=== PATIENT | male | born 1930 | race Caucasian/White ===

== ENCOUNTER 2017-10-05 19:05 | Inpatient (IN) | payer MEDICARE, OTHER ==
[~2017-10-05] VITALS: Ht 180.3 cm; Wt 70.3 kg
--- NOTE | ~2017-10-05 | OP ---
PATIENT NAME: AMRITA GALLARDO MEDICAL RECORD: [id number] :[birth year] LOCATION:[id number] ADMISSION DATE:10/06/17 SURGEON: KARLOS GIBBS MD DATE OF OPERATION: 10/07/2017 PREOPERATIVE DIAGNOSIS: Displaced femoral neck fracture of the right hip and influenza. POSTOPERATIVE DIAGNOSIS: Displaced femoral neck fracture of the right hip and influenza. PROCEDURE: Bipolar endoprosthesis of the right hip. SURGEON: Karlos Gibbs MD ANESTHESIA: General. INTRAOPERATIVE COMPLICATIONS: None. SUMMARY OF PATHOLOGIC FINDINGS: The patient had a displaced femoral neck fracture consistent with preoperative diagnosis. OPERATIVE SUMMARY IN DETAIL: After obtaining the appropriate preoperative orthopedic surgery consent as well as anesthetic consultation, evaluation and clearance, the patient was brought to the operating room and placed on operating table in supine position. After adequate general laryngeal mask airway was administered, the patient was placed in a left lateral decubitus position. All pressure points were well padded to include down leg peroneal pad as well as axillary roll. The patient was held firmly to the operating table using the vacuum pack suction system. Right lower extremity and hip were then prepped and draped in a routine sterile fashion. Curvilinear incision was made over the greater trochanter, taken down to the level the IT band which was split in line with fibers of the IT band to reveal the gluteus medius and minimus attachment to the greater trochanter. These were reflected anteriorly and the capsule was taken down. The fracture was noted. The femoral head was extracted from the acetabulum and sent for pathology. The cleanup cut guide was made on the femoral neck. The acetabulum was washed free of all fragments. Serial and sequential reaming and broaching were done for a size 5 Anato stem from [place]. Trials were undertaken and it was felt that the 56 outside diameter with a 26 -3 femoral head was the most appropriate for leg length maintenance. Intraoperative radiographs were taken, showed good position and placement of all components with good leg length retention. The wound was copiously irrigated at this and multiple points during the case. Hip capsule was closed with #5 Ethibond. This was followed by #5 Ethibond reapproximation of the gluteus medius and minimus to the greater trochanter in a transosseous fashion. IT band was closed with #5 Ethibond likewise and lastly skin was closed with #1 Vicryl followed by skin zbigniew. Sterile dressings were applied. The patient was taken to recovery room in stable condition. All final needle and sponge counts were correct. TRANSINT:[id number] Voice Confirmation ID: [id number] DOCUMENT ID: [id number] OPERATIVE REPORT [id number] AMRITA GALLARDO MD, KARLOS GONZALEZ at 1104 CC: [id number] DICTATION DATE: 10/07/171833 RADIOLOGY RECEPTIONIST: 10/08/17 0419 ADM IN [place] [id number] [place] [id number]
[2017-10-05 19:43] LABS: BASOPHILS 0.2 % (0-2); EOSINOPHILS 0 % (0-7); HEMATOCRIT 33.4 % (42.0-54.0); HEMOGLOBIN 11.6 g/dL (13.5-17.5); IMMATURE GRANULOCYTES 0.2 % (0-5); LYMPHOCYTES 10.5 % (15-50); MCH 29.9 pg (26.0-34.0); MCHC 34.7 g/dL (31.0-37.0); MCV 86.1 fL (80.0-100.0); MEAN PLATELET VOLUME 8.5 fL (7.4-10.4); MONOCYTES 16.3 % (2-11); NEUTROPHILS 72.8 % (40-80); PLATELET COUNT 184 10x3/uL (130-400); RBC 3.88 10x6/uL (4.20-6.10); RDW 12.9 % (11.5-14.5); WBC 9.1 10x3/uL (4.8-10.8)
[2017-10-05 19:57] LABS: ALBUMIN 3.2 g/dL (3.4-5.0); ALKALINE PHOSPHATASE 87 U/L (46-116); ALT (SGPT) 19 U/L (10-68); BILIRUBIN - TOTAL 1.66 mg/dL (0.2-1.3); CALC OSMOLALITY 252 mosm/kg (275-300); CALCIUM 8.7 mg/dL (8.5-10.1); CARBON DIOXIDE 28.9 mmol/L (21.0-32.0); CHLORIDE - SERUM 89 mmol/L (98-107); CREATININE - SERUM 0.8 mg/dL (0.6-1.3); GLUCOSE 105 mg/dL (74-106); POTASSIUM - SERUM 4.1 mmol/L (3.5-5.1); PROTEIN - SERUM 7.2 g/dL (6.4-8.2); SODIUM 125 mmol/L (136-145); UREA NITROGEN 14 mg/dL (7-18); eGFR NON AFRICAN AMERICAN > 90 mL/min (90-120)
[2017-10-06 05:25] VITALS: BP 155/85
[2017-10-06 05:36] VITALS: BP 155/85; BMI 21.6
[2017-10-06 08:09] VITALS: BP 152/77
[2017-10-06 12:45] VITALS: BP 165/81
[2017-10-06] MEDS ORDERED: TYLENOL W/CODEI1 TAB PO (13:50)
[2017-10-06] MEDS ORDERED: TAMIFLU75 MG PO (13:50)
[2017-10-06 16:16] VITALS: BP 160/78
[2017-10-07] VITALS (7 sets, daily range): BP systolic 116–163; BP diastolic 78–90; Ht 180.3 cm; Wt 70.3 kg
[2017-10-07 04:25] LABS: BASOPHILS 0 % (0-2); EOSINOPHILS 0 % (0-7); HEMATOCRIT 33.5 % (42.0-54.0); HEMOGLOBIN 11.7 g/dL (13.5-17.5); IMMATURE GRANULOCYTES 0.3 % (0-5); MCH 29.5 pg (26.0-34.0); MCHC 34.9 g/dL (31.0-37.0); MCV 84.6 fL (80.0-100.0); MEAN PLATELET VOLUME 8.9 fL (7.4-10.4); MONOCYTES 11.6 % (2-11); NEUTROPHILS 82.1 % (40-80); PLATELET COUNT 207 10x3/uL (130-400); RBC 3.96 10x6/uL (4.20-6.10); RDW 12.8 % (11.5-14.5)
[2017-10-07 04:31] LABS: WBC 15.7 10x3/uL (4.8-10.8)
[2017-10-07 04:34] LABS: CALC OSMOLALITY 255 mosm/kg (275-300); CALCIUM 8.1 mg/dL (8.5-10.1); CARBON DIOXIDE 29.8 mmol/L (21.0-32.0); CHLORIDE - SERUM 91 mmol/L (98-107); CREATININE - SERUM 0.8 mg/dL (0.6-1.3); GLUCOSE 133 mg/dL (74-106); POTASSIUM - SERUM 3.8 mmol/L (3.5-5.1); SODIUM 127 mmol/L (136-145); eGFR NON AFRICAN AMERICAN > 90 mL/min (90-120)
[2017-10-07 04:35] LABS: UREA NITROGEN 11 mg/dL (7-18)
[2017-10-07 15:25] LABS: APPEARANCE CLEAR (CLEAR); BILIRUBIN NEGATIVE (NEGATIVE); COLOR DK YELLOW (YELLOW); GLUCOSE NEGATIVE (NEGATIVE); KETONE SMALL mg/dL (NEGATIVE); NITRITE NEGATIVE (NEGATIVE); PROTEIN TRACE mg/dL (NEGATIVE); UROBILINOGEN NORMAL (NORMAL)
[2017-10-07 15:28] LABS: BACTERIA FEW /hpf (NONE SEEN); RED CELLS - URINE 0-5 /hpf (0-5)
[2017-10-08 01:30] VITALS: BP 157/68
[2017-10-08 05:21] VITALS: BP 151/85
[2017-10-08 05:54] LABS: BASOPHILS 0 % (0-2); EOSINOPHILS 0 % (0-7); HEMATOCRIT 30.5 % (42.0-54.0); HEMOGLOBIN 10.4 g/dL (13.5-17.5); IMMATURE GRANULOCYTES 0.3 % (0-5); MCH 29.1 pg (26.0-34.0); MCHC 34.1 g/dL (31.0-37.0); MCV 85.4 fL (80.0-100.0); MEAN PLATELET VOLUME 8.9 fL (7.4-10.4); NEUTROPHILS 80.7 % (40-80); PLATELET COUNT 201 10x3/uL (130-400); RBC 3.57 10x6/uL (4.20-6.10); RDW 13.2 % (11.5-14.5)
[2017-10-08 05:57] LABS: WBC 11.1 10x3/uL (4.8-10.8)
[2017-10-08 06:02] LABS: CALC OSMOLALITY 263 mosm/kg (275-300); CALCIUM 7.7 mg/dL (8.5-10.1); CARBON DIOXIDE 28.2 mmol/L (21.0-32.0); CHLORIDE - SERUM 97 mmol/L (98-107); CREATININE - SERUM 0.7 mg/dL (0.6-1.3); GLUCOSE 129 mg/dL (74-106); POTASSIUM - SERUM 3.6 mmol/L (3.5-5.1); SODIUM 131 mmol/L (136-145); UREA NITROGEN 10 mg/dL (7-18); eGFR NON AFRICAN AMERICAN > 90 mL/min (90-120)
[2017-10-08 09:04] VITALS: BP 138/68
[2017-10-08 12:43] VITALS: BP 149/71
[2017-10-08 16:05] VITALS: BP 146/70
[2017-10-08 21:41] VITALS: BP 146/80
[2017-10-09 00:40] VITALS: BP 151/68
[2017-10-09 04:05] VITALS: BP 146/81
[2017-10-09 06:13] LABS: BASOPHILS 0.1 % (0-2); EOSINOPHILS 0 % (0-7); HEMATOCRIT 27.6 % (42.0-54.0); HEMOGLOBIN 9.4 g/dL (13.5-17.5); IMMATURE GRANULOCYTES 0.3 % (0-5); LYMPHOCYTES 9.3 % (15-50); MCH 29.2 pg (26.0-34.0); MCHC 34.1 g/dL (31.0-37.0); MCV 85.7 fL (80.0-100.0); MEAN PLATELET VOLUME 8.4 fL (7.4-10.4); MONOCYTES 12.5 % (2-11); NEUTROPHILS 77.8 % (40-80); PLATELET COUNT 188 10x3/uL (130-400); RBC 3.22 10x6/uL (4.20-6.10); RDW 13.4 % (11.5-14.5); WBC 9.8 10x3/uL (4.8-10.8)
[2017-10-09 06:31] LABS: CALC OSMOLALITY 267 mosm/kg (275-300); CALCIUM 7.9 mg/dL (8.5-10.1); CARBON DIOXIDE 30.3 mmol/L (21.0-32.0); CHLORIDE - SERUM 99 mmol/L (98-107); CREATININE - SERUM 0.7 mg/dL (0.6-1.3); GLUCOSE 108 mg/dL (74-106); POTASSIUM - SERUM 3.2 mmol/L (3.5-5.1); SODIUM 134 mmol/L (136-145); UREA NITROGEN 9 mg/dL (7-18); eGFR NON AFRICAN AMERICAN > 90 mL/min (90-120)
[2017-10-09 09:46] VITALS: BP 160/88
[2017-10-09 17:05] VITALS: BP 143/73
[2017-10-09 20:31] VITALS: BP 153/73
[2017-10-10 00:16] VITALS: BP 146/76
[2017-10-10 04:52] VITALS: BP 148/75
[2017-10-10 06:37] LABS: BASOPHILS 0.1 % (0-2); EOSINOPHILS 0.2 % (0-7); HEMATOCRIT 26.2 % (42.0-54.0); HEMOGLOBIN 8.9 g/dL (13.5-17.5); IMMATURE GRANULOCYTES 0.2 % (0-5); LYMPHOCYTES 14.7 % (15-50); MCH 29.2 pg (26.0-34.0); MCV 85.9 fL (80.0-100.0); MEAN PLATELET VOLUME 8.6 fL (7.4-10.4); MONOCYTES 13.7 % (2-11); NEUTROPHILS 71.1 % (40-80); PLATELET COUNT 213 10x3/uL (130-400); RBC 3.05 10x6/uL (4.20-6.10); RDW 13.4 % (11.5-14.5); WBC 8.7 10x3/uL (4.8-10.8)
[2017-10-10 07:03] LABS: CALC OSMOLALITY 264 mosm/kg (275-300); CALCIUM 7.8 mg/dL (8.5-10.1); CARBON DIOXIDE 26.1 mmol/L (21.0-32.0); CHLORIDE - SERUM 99 mmol/L (98-107); CREATININE - SERUM 0.6 mg/dL (0.6-1.3); GLUCOSE 92 mg/dL (74-106); POTASSIUM - SERUM 3.8 mmol/L (3.5-5.1); SODIUM 132 mmol/L (136-145); eGFR NON AFRICAN AMERICAN > 90 mL/min (90-120)
[2017-10-10 07:04] LABS: UREA NITROGEN 12 mg/dL (7-18)
[2017-10-10 09:07] VITALS: BP 157/80
[2017-10-10 12:40] VITALS: BP 149/73
[2017-10-10 17:09] VITALS: BP 144/72
[2017-10-10 20:00] VITALS: BP 150/82
[2017-10-11] VITALS: BP 154/91
[2017-10-11 04:00] VITALS: BP 163/93
[2017-10-11 04:39] LABS: BASOPHILS 0.1 % (0-2); EOSINOPHILS 2.1 % (0-7); HEMATOCRIT 27.4 % (42.0-54.0); HEMOGLOBIN 9.4 g/dL (13.5-17.5); IMMATURE GRANULOCYTES 0.4 % (0-5); LYMPHOCYTES 15.3 % (15-50); MCH 29.2 pg (26.0-34.0); MCHC 34.3 g/dL (31.0-37.0); MCV 85.1 fL (80.0-100.0); MEAN PLATELET VOLUME 8.8 fL (7.4-10.4); MONOCYTES 13.8 % (2-11); NEUTROPHILS 68.3 % (40-80); RBC 3.22 10x6/uL (4.20-6.10); RDW 13.5 % (11.5-14.5)
[2017-10-11 04:42] LABS: PLATELET COUNT 259 10x3/uL (130-400)
[2017-10-11 05:07] LABS: CALCIUM 8.1 mg/dL (8.5-10.1); CARBON DIOXIDE 29.3 mmol/L (21.0-32.0); CREATININE - SERUM 0.6 mg/dL (0.6-1.3); GLUCOSE 92 mg/dL (74-106); UREA NITROGEN 12 mg/dL (7-18); eGFR NON AFRICAN AMERICAN > 90 mL/min (90-120)
[2017-10-11 05:31] LABS: CALC OSMOLALITY 265 mosm/kg (275-300); CHLORIDE - SERUM 97 mmol/L (98-107); POTASSIUM - SERUM 3.5 mmol/L (3.5-5.1); SODIUM 133 mmol/L (136-145)
[2017-10-11 09:26] VITALS: BP 170/94
[2017-10-11 12:44] VITALS: BP 169/98
[2017-10-11 16:45] VITALS: BP 158/81
[2017-10-11 20:00] VITALS: BP 153/77
[2017-10-12 04:00] VITALS: BP 167/65
[2017-10-12 04:51] LABS: BASOPHILS 0 % (0-2); HEMATOCRIT 27.4 % (42.0-54.0); HEMOGLOBIN 9.5 g/dL (13.5-17.5); IMMATURE GRANULOCYTES 0.5 % (0-5); LYMPHOCYTES 12.4 % (15-50); MCH 29.4 pg (26.0-34.0); MCHC 34.7 g/dL (31.0-37.0); MCV 84.8 fL (80.0-100.0); MEAN PLATELET VOLUME 8.7 fL (7.4-10.4); MONOCYTES 13.6 % (2-11); NEUTROPHILS 72.5 % (40-80); RBC 3.23 10x6/uL (4.20-6.10); RDW 13.4 % (11.5-14.5); WBC 8.6 10x3/uL (4.8-10.8)
[2017-10-12 04:59] LABS: CALC OSMOLALITY 264 mosm/kg (275-300); CALCIUM 8.1 mg/dL (8.5-10.1); CHLORIDE - SERUM 95 mmol/L (98-107); CREATININE - SERUM 0.6 mg/dL (0.6-1.3); GLUCOSE 98 mg/dL (74-106); POTASSIUM - SERUM 3.5 mmol/L (3.5-5.1); SODIUM 133 mmol/L (136-145); UREA NITROGEN 11 mg/dL (7-18); eGFR NON AFRICAN AMERICAN > 90 mL/min (90-120)
[2017-10-12 05:05] LABS: PLATELET COUNT 331 10x3/uL (130-400)
[2017-10-12] MEDS ORDERED: TYLENOL W/CODEI1 TAB PO (08:41)
[2017-10-12] MEDS ORDERED: SENOKOT-S TABLE1 TAB PO (08:42)
[2017-10-12] MEDS ORDERED: ELIQUIS2.5 MG PO (08:42)
[2017-10-12] MEDS ORDERED: BENZONATATE200 MG PO (08:42)
[2017-10-12] MEDS ORDERED: COZAAR50 MG PO (08:42)
[2017-10-12] MEDS ORDERED: HEMOCYTE PLUS C1 CAP PO (08:42)
[2017-10-12 09:47] VITALS: BP 162/78
[2017-10-12 12:02] VITALS: BP 124/76
== END 2017-10-12 14:59 | DRG 470 ==
LOC: D.ER 19:05 → D.MS 10-06 04:04
PROVIDERS: Emergency Medicine; Family Medicine; Orthopaedic Surgery
PROC: 0SRR0JZ Replacement of Right Hip Joint, Femoral Surface with Synthetic Substitute, Open Approach (ICD-10-PCS; principal; 2017-10-07 13:30)
DX: S72.001A Fracture of unspecified part of neck of right femur, initial encounter for closed fracture (principal); E87.1 Hypo-osmolality and hyponatremia; W19.XXXA Unspecified fall, initial encounter; I10 Essential (primary) hypertension; J10.1 Influenza due to other identified influenza virus with other respiratory manifestations; D64.9 Anemia, unspecified; E78.5 Hyperlipidemia, unspecified

== ENCOUNTER 2017-10-05 23:53 | Emergency (ER) | payer MEDICARE ==
--- NOTE | ~2017-10-05 | CN ---
PATIENT NAME:AMRITA GALLARDO MEDICAL RECORD: [id number] : [birth year] LOCATION:[facility] ADMIT DATE: ACCOUNT: [id number] CONSULTING PHYSICIAN: KARLOS DANIEL MD REFERRING PHYSICIAN: BESSY HUNTER MD DATE OF CONSULTATION: 10/06/2017 PATIENT OF: Karlos Daniel MD REASON FOR CONSULTATION: Medical management. CHIEF COMPLAINT: Pain in the right hip. HISTORY OF PRESENT ILLNESS: The patient apparently had presented to the Emergency Room where he is diagnosed with flu. He states that he attempted to get out of his car at home landing on his right hip. The patient presented to the Emergency Room and found to have a intertrochanteric fracture of the right hip, Emergency Room did not contact PCP, but did contact orthopedist, who has admitted the patient now. I am being consulted for medical management patient. PAST MEDICAL HISTORY: Significant that he has had hypertension and hyperlipidemia. He had a history of an appendectomy, bilateral cataract surgery. He had a colonoscopy in 2005. FAMILY HISTORY: Mother lived to be 96 years of age. Father at 86 years of age. 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 Educated to 2 years of college. He is . HABITS: The patient is a nonsmoker, nondrinker. MEDICATIONS: Include aspirin 81 mg once a day, lorazepam 0.5 mg once a day, saw palmetto p.r.n., niacin 500 mg 4 tablets p.o. every day. ALLERGIES: He has known drug allergies. REVIEW OF SYSTEMS: GENERAL: He denies any headaches, seizure, or syncope. HEENT: Denies change in visual or auditory acuity. PULMONARY: He denies any shortness of breath, cough or congestion, history of TB, asthma, or bronchitis. CARDIOVASCULAR: No chest pain, palpitations, PND, or orthopnea. GASTROINTESTINAL: No chronic nausea, vomiting, melena, or hematochezia. GENITOURINARY: No urgency, frequency, or dysuria. PHYSICAL EXAMINATION: VITAL SIGNS: In the Emergency Room, the patient's temperature was 97.8, his pulse is 90, respirations 18, blood pressure 168/104. HEENT: Head is normocephalic. No lesions. Ears: TMs clear. Eyes: Pupils equal, round, and reactive to light. His extraocular movements are intact. His nasal cavity, oral cavity, oropharynx clear. NECK: Supple. There is no adenopathy. HEART: Has a regular rate and rhythm without any murmurs, gallops, or rubs. CONSULT REPORT [id number] AMRITA GALLARDO LUNGS: Clear. ABDOMEN: Soft. The bowel sounds are positive. DIAGNOSTIC DATA: Currently, the patient has had an x-ray in the Emergency Room, but the x-ray is not on the computer at the present time. LABORATORY DATA: The patient had a white blood cell count of 9.1, hemoglobin 11.6, hematocrit 33.4, and platelets are 184. He had a sodium of 125, potassium 4.1, chloride is 89, CO2 was 28.9, BUN is 14, creatinine 0.8. On the , he has had a positive influenza B. ASSESSMENT: 1. Right hip pain. 2. Recent history of influenza type B. 3. Hyponatremia. PLAN: The patient will be placed on normal saline. He was also given Tamiflu 75 b.i.d. We will correct his sodium by placing him on normal saline. We will get an EKG on the patient, felt the patient is stable, and can proceed with an open reduction internal fixation of the right hip. TRANSINT:[id number] Voice Confirmation ID: [id number] DOCUMENT ID: [id number] KARLOS DANIEL MD at 0703 CC: [id number] DICTATION DATE: 10/06/17 174 STOCK PATCHER: 10/06/17 1818 [facility] [address] [place] [address]
[2017-10-06 01:22] LABS: BASOPHILS 0 % (0-2); EOSINOPHILS 0 % (0-7); HEMATOCRIT 32.2 % (42.0-54.0); HEMOGLOBIN 11.4 g/dL (13.5-17.5); IMMATURE GRANULOCYTES 0.2 % (0-5); LYMPHOCYTES 4.6 % (15-50); MCHC 35.4 g/dL (31.0-37.0); MCV 84.7 fL (80.0-100.0); MEAN PLATELET VOLUME 8.6 fL (7.4-10.4); MONOCYTES 3.7 % (2-11); NEUTROPHILS 91.5 % (40-80); PLATELET COUNT 178 10x3/uL (130-400); RDW 12.7 % (11.5-14.5)
[2017-10-06 01:24] LABS: WBC 11.8 10x3/uL (4.8-10.8)
[2017-10-06 01:33] LABS: APTT 29.8 SECONDS (22.8-39.4); INR 1.17 (0.85-1.17); PROTIME 14.5 SECONDS (11.6-15.0)
[2017-10-06 01:38] LABS: ALBUMIN 3.1 g/dL (3.4-5.0); ALKALINE PHOSPHATASE 86 U/L (46-116); ALT (SGPT) 20 U/L (10-68); CALC OSMOLALITY 249 mosm/kg (275-300); CALCIUM 8.4 mg/dL (8.5-10.1); CARBON DIOXIDE 28.5 mmol/L (21.0-32.0); CHLORIDE - SERUM 88 mmol/L (98-107); CREATININE - SERUM 0.8 mg/dL (0.6-1.3); SODIUM 122 mmol/L (136-145); UREA NITROGEN 15 mg/dL (7-18); eGFR NON AFRICAN AMERICAN > 90 mL/min (90-120)
[2017-10-06 01:48] LABS: GLUCOSE 161 mg/dL (74-106)
[2017-10-06] MEDS ORDERED: TYLENOL W/CODEI1 TAB PO (13:50)
[2017-10-06] MEDS ORDERED: TAMIFLU75 MG PO (13:50)
[2017-10-07 14:20] VITALS: BMI 21.6
== END 2017-10-06 04:24 | disposition home or self-care (01) ==
LOC: D.ER 23:53
PROVIDERS: Physician Assistant
DX: S72.001A Fracture of unspecified part of neck of right femur, initial encounter for closed fracture (principal); W17.89XA Other fall from one level to another, initial encounter; Y93.89 Activity, other specified; Y92.019 Unspecified place in single-family (private) house as the place of occurrence of the external cause; D64.9 Anemia, unspecified; E87.1 Hypo-osmolality and hyponatremia; M25.551 Pain in right hip